=== PATIENT | female | born 1990 | race Caucasian/White ===

== ENCOUNTER 2016-12-02 11:02 | Emergency (ER) | payer OTHER ==
[2016-12-02 12:04] LABS: BILIRUBIN 1+ mg/dL (NEGATIVE); BLOOD 3+ Ery/uL (NEGATIVE); COLOR YELLOW (YELLOW); GLUCOSE (U) NORMAL (NORMAL); KETONE (U) NEGATIVE (NEGATIVE); LEUKOCYTES TRACE Leu/uL (NEGATIVE); NITRITE NEGATIVE (NEGATIVE); PROTEIN 2+ mg/dL (NEGATIVE); SPECIFIC GRAVITY 1.025 (1.001-1.030); pH 5.5 (5.0-9.0)
[2016-12-02 12:05] LABS: CLARITY HAZY (CLEAR)
[2016-12-02 12:08] LABS: BASOPHIL 0.3 % (0-2); EOSINOPHIL 0.9 % (0-5); HCT 34.4 % (37.0-47.0); HGB 11.3 g/dl (12.5-16.0); LYMPHOCYTE 19.9 % (15-48); MCH 27.8 pg (25.0-31.0); MCHC 32.8 g/dL (32.0-36.0); MCV 84.7 fL (78.0-100.0); MONOCYTE 7.2 % (0-12); NEUTROPHIL 71.7 % (41-80); PLT 207 K/uL (150-400); RBC 4.06 M/uL (4.20-5.40); WBC 6.8 K/uL (4.0-10.5)
[2016-12-02 12:19] LABS: BACTERIA 1+; URINARY RBC TNTC
[2016-12-02 12:29] LABS: CREATININE 0.7 mg/dL (0.5-1.0); POTASSIUM 3.8 mmol/L (3.5-5.1)
== END 2016-12-02 12:59 | disposition home or self-care (01) ==
LOC: FER 11:02
PROVIDERS: Nurse Practitioner
DX: G89.18 Other acute postprocedural pain (principal); R10.84 Generalized abdominal pain; R11.2 Nausea with vomiting, unspecified; Z88.0 Allergy status to penicillin; Z90.710 Acquired absence of both cervix and uterus
CPT/HCPCS: 36415; 80048; 81001; 85025; J1885

== ENCOUNTER 2016-12-10 06:31 | Inpatient (IN) | payer OTHER ==
[~2016-12-10] VITALS: Ht 165.1 cm; Wt 79.4 kg
[2016-12-10 08:24] LABS: BASOPHIL 0.3 % (0-2); EOSINOPHIL 0.7 % (0-5); HCT 29.8 % (37.0-47.0); HGB 9.9 g/dl (12.5-16.0); LYMPHOCYTE 16.9 % (15-48); MCH 28.3 pg (25.0-31.0); MCHC 33.2 g/dL (32.0-36.0); MCV 85.1 fL (78.0-100.0); MONOCYTE 5.2 % (0-12); MPV 9.9 fL (6.0-9.5); NEUTROPHIL 76.9 % (41-80); PLT 230 K/uL (150-400); RDW 13.4 % (11.5-14.0); WBC 7.1 K/uL (4.0-10.5)
[2016-12-10 08:39] LABS: BILIRUBIN - TOTAL 0.5 mg/dL (0.1-1.0); CREATININE 0.7 mg/dL (0.5-1.0); GLOBULIN (CALCULATION) 3.5 g/dL (2.2-4.2); POTASSIUM 3.8 mmol/L (3.5-5.1); TOTAL PROTEIN 7.5 g/dL (6.4-8.3)
[2016-12-11 05:51] LABS: HCT 29.3 % (37.0-47.0); HGB 9.4 g/dl (12.5-16.0); MCH 27.4 pg (25.0-31.0); MCHC 32.1 g/dL (32.0-36.0); MCV 85.4 fL (78.0-100.0); MPV 9.5 fL (6.0-9.5); RBC 3.43 M/uL (4.20-5.40); RDW 13.2 % (11.5-14.0); WBC 5.8 K/uL (4.0-10.5)
--- NOTE | 2016-12-11 10:53 | NUR ---
DR. CLARK AT BEDSIDE TO ATTEMPT REMOVAL OF VAGINAL SUTURES. UNSUCCESSFUL. PLAN IS TO PROCEED WITH LAP AND EVACUATION OF PELVIC HEMATOMA IN OR PER DR. CLARK.
[2016-12-12 07:28] LABS: BASOPHIL 0.2 % (0-2); EOSINOPHIL 1.5 % (0-5); HCT 27.7 % (37.0-47.0); MCH 27.9 pg (25.0-31.0); MCHC 32.5 g/dL (32.0-36.0); MCV 85.8 fL (78.0-100.0); MONOCYTE 7.9 % (0-12); MPV 9.8 fL (6.0-9.5); NEUTROPHIL 66.4 % (41-80); PLT 240 K/uL (150-400); RBC 3.23 M/uL (4.20-5.40); RDW 13.3 % (11.5-14.0); WBC 6.2 K/uL (4.0-10.5)
[2016-12-12 08:01] LABS: BAND 2 % (0-10); LYMPHOCYTE(M) 24 % (15-48); MONOCYTE(M) 10 % (0-12); NEUTROPHILS(M) 64 % (41-80); TOTAL CELL COUNT 100
[2016-12-12 08:05] LABS: PLATELET ESTIMATE NORMAL; PLATELET MORPHOLOGY NORMAL
[2016-12-13] MEDS ORDERED: COLACE100 MG PO (08:10)
[2016-12-13] MEDS ORDERED: PERCOCET 5/3251 TAB PO (08:10)
[2016-12-13] MEDS ORDERED: ZOFRAN4 MG PO (08:10)
[2016-12-13] MEDS ORDERED: METRONIDAZOLE500 MG PO (08:11)
[2016-12-13] MEDS ORDERED: SULFAMETHOXAZO1 EACH PO (08:15)
[2016-12-13] MEDS ORDERED: IBUPROFEN800 MG PO (08:16)
== END 2016-12-13 08:04 | disposition home or self-care (01) | DRG 909 ==
LOC: FER 06:31 → FMS 11:04 → FER 11:04 → FOB 11:04 → FMS 12-11 17:15 → FOB 12-11 17:15 → FMS 12-11 17:15
PROVIDERS: Emergency Medicine; ADMIT Obstetrics & Gynecology
PROC: 0WCJ4ZZ Extirpation of Matter from Pelvic Cavity, Percutaneous Endoscopic Approach (ICD-10-PCS; principal; 2016-12-10)
PROC: 0DNS4ZZ (ICD-10-PCS; 2016-12-10)
DX: N99.841 Postprocedural hematoma of a genitourinary system organ or structure following other procedure (principal); D64.9 Anemia, unspecified; N73.6 Female pelvic peritoneal adhesions (postinfective); R50.9 Fever, unspecified
CPT/HCPCS: 36415; 76830; 76856; 80053; 85025; 88304; 88312; 88341; 88342; 94010; 96372; C9113; J1170; J1885; J2270; J2405; J2704; J2710; J2916; J3010

== ENCOUNTER 2021-01-24 18:51 | Emergency (ER) | payer OTHER ==
[~2021-01-24 18:51] MED LIST: ANTI-FUNGAL CR198 GM TOP; ANTIVERT25 MG PO; BENTYL10 MG PO; COLACE100 MG PO; FLEXERIL10 MG PO; IBUPROFEN800 MG PO; LEXAPRO 10MG TA10 MG PO; MEDROL 4MG DOSEP4 MG PO; METRONIDAZOLE500 MG PO; MOTRIN600 MG PO; NAPROXEN500 MG PO; NEURONTIN100 MG PO; PERCOCET 5/3251 TAB PO; PREDNISONE 20MG20 MG PO; SULFAMETHOXAZO1 EACH PO; ZOFRAN4 MG PO; ZOFRAN8 MG PO
== END 2021-01-24 22:10 | disposition home or self-care (01) ==
LOC: FER 18:51
DX: S92.511A Displaced fracture of proximal phalanx of right lesser toe(s), initial encounter for closed fracture (principal); W22.03XA Walked into furniture, initial encounter; Y92.009 Unspecified place in unspecified non-institutional (private) residence as the place of occurrence of the external cause; Z88.0 Allergy status to penicillin
CPT/HCPCS: 73630